=== PATIENT | female | born 1950 | race Hispanic/Latino ===

== ENCOUNTER 2022-04-14 15:20 | Emergency (ER) | payer OTHER ==
[2022-04-14] MEDS ORDERED: ONDANSETRON 4MG INJ IV ONE (15:30)
[2022-04-14] MEDS ORDERED: MORPHINE 4 MG SYG IVP ONE (15:30)
[2022-04-14 15:45] LABS: BASOPHILS % (AUTO) 0.4 % (0.0-5.0); EOSINOPHILS % (AUTO) 2.5 % (0.0-8.0); HEMATOCRIT 40.3 % (36-48); MEAN CORPUSCULAR HEMOGLOBIN 31.1 pg (27.0-33.0); MEAN CORPUSCULAR HGB CONC 33.3 g/dL (32.0-36.0); MEAN CORPUSCULAR VOLUME 93.5 fL (79-99); MONOCYTES % (AUTO) 4.6 % (3.0-13.0); NEUTROPHILS % (AUTO) 70.4 % (40.0-77.0); PLATELET COUNT (AUTO) 289 K/uL (130-400); RED BLOOD CELL COUNT(AUTO) 4.31 MIL/uL (4.00-5.50); WHITE BLOOD COUNT (AUTO) 16.9 K/uL (4.8-10.8)
[2022-04-14 15:52] LABS: CREATININE 0.8 mg/dL (0.5-1.5); POTASSIUM 3.5 mmol/L (3.5-5.1)
[2022-04-14 15:57] LABS: ALBUMIN 3.8 g/dL (3.5-5.0); TOTAL PROTEIN, SERUM 7.9 g/dL (6.0-8.3)
[2022-04-14] MEDS ORDERED: ETOMIDATE 20MG VIAL ONE (18:11)
[2022-04-14] MEDS ORDERED: ETOMIDATE 20MG VIAL IVP SCH (18:30)
[2022-04-14] MEDS ORDERED: NAPR-1180 PO (18:49)
[2022-04-14] MEDS ORDERED: OXYC-38 PO (18:49)
[2022-04-14 19:20] VITALS: BP 142/70
== END 2022-04-14 19:49 | disposition home or self-care (01) ==
LOC: EDH 15:20
DX: S22.32XA Fracture of one rib, left side, initial encounter for closed fracture (principal); S52.92XA Unspecified fracture of left forearm, initial encounter for closed fracture; Z98.890 Other specified postprocedural states; V89.2XXA Person injured in unspecified motor-vehicle accident, traffic, initial encounter; Y93.I9 Activity, other involving external motion; Y92.488 Other paved roadways as the place of occurrence of the external cause; Y99.8 Other external cause status
CPT/HCPCS: 25605; 99285; 80053; 85025; 36415; 73100 ×2; 73630; 71100; 96374; J2405; J2270; J3490